=== PATIENT | male | born 1970 | race Caucasian/White ===

== ENCOUNTER → 2021-09-08 | Outpatient (REF) ==
--- NOTE | 2021-09-08 15:07 | Diagnostic Imaging Report ---
INDICATION: Positive TB skin test. EXAMINATION: Chest, 09/08/2021. FINDINGS: Frontal chest. The cardiomediastinal silhouette is unremarkable. The pulmonary vasculature is within normal limits. The lungs and pleural spaces are clear. IMPRESSION: No evidence of an acute cardiopulmonary process. Dictated by: Dictated on workstation # [id number]
== END ==
LOC: OCC 14:10
PROVIDERS: ATTEND Family Medicine
DX: R76.11 Nonspecific reaction to tuberculin skin test without active tuberculosis (principal)
CPT/HCPCS: 71045